=== PATIENT | male | born 2000 | race African-American/Black ===

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

== ENCOUNTER 2024-10-28 14:52 | Emergency (ER) | payer BC, OTHER ==
[2024-10-28] MEDS ORDERED: Ibuprofen 200 MG TAB ONE (15:54)
[2024-10-28] MEDS ORDERED: HYDROcodone/Acetaminophen 5/325 mg Tablet ONE (15:55)
== END 2024-10-28 16:35 | disposition home or self-care (01) ==
LOC: BURERS 14:52
DX: S93.421A Sprain of deltoid ligament of right ankle, initial encounter (principal); F17.210 Nicotine dependence, cigarettes, uncomplicated; X50.1XXA Overexertion from prolonged static or awkward postures, initial encounter
CPT/HCPCS: 99283